=== PATIENT | male | born 1970 | race Caucasian/White ===

== ENCOUNTER 2018-05-26 00:17 | Emergency (ER) | payer MEDICAID, OTHER ==
[~2018-05-26] VITALS: Ht 193 cm; Wt 113.6 kg
[2018-05-26 00:22] VITALS: BP 162/111
[2018-05-26] MEDS ORDERED: triamcinolone acetonide 40mg/ml inj IJ ONE (02:05)
[2018-05-26] MEDS ORDERED: LIDOcaine 1% 30ml preserv. free vial IJ ONE (02:05)
[2018-05-26] MEDS ORDERED: PANT-47 PO (02:50)
[2018-05-26] MEDS ORDERED: IBUP-1986 PO (02:50)
== END 2018-05-26 03:04 | disposition home or self-care (01) ==
LOC: ER 00:17
DX: M25.512 Pain in left shoulder (principal); Z79.899 Other long term (current) drug therapy
CPT/HCPCS: 20610; 73030; 93005; 99284; J3301; J3490